=== PATIENT | female | born 1955 | race Hispanic/Latino ===

== ENCOUNTER 2020-02-29 18:10 | Emergency (ER) | payer SELFPAY ==
--- OUTSIDE RECORDS SUMMARY | 2020-02-29 18:13 | XMS REPORT | Continuity of Care Document ---
Author Author [facility] t Organization [facility] Address [address] [place] [address] Phone Unavailable Care Team Providers Care Airplane Refueler Name Role Phone Christina DAY, P Nihita PCP Shanti DAY, Dorisumathi Attphys [phone] Christina DAY, P Nihita Attphys Rosario DAY, T Robert Attphys Payers Payer Name Policy Type Policy Number Effective Date Expiration Date Marycarmen DURHAM [employer]xxx /10/[id number] [address] [place] [id number] xxxxxxxxxx 2019 00:00:0 0 2020 23:59:59 [facility] Problems Condition Name Condition Details Condition Category Status Onset Date Resolution Date Last Treatment Date Treating Clinician Comments Source Adult BMI > 30 Adult BMI > 30 Disease Active 2017-01-13 00:00:00 [facility] Overweight (BMI 25.0-29.9) Overweight (BMI 25.0-29.9) Disease Active 2017-01-13 00:00:00 [facility] Essential hypertension Essential hypertension Disease Active 2016-12-02 00:00:00 [facility] Type 2 diabetes mellitus without complic ation, without long-term current use of insulin Type 2 diabetes mellitus without complic ation, without long-term current use of insulin Disease Active 2016-12-02 00:00:00 [facility] Other and unspecified hyperlipidemia Other and unspecified h yperlipidemia Disease Active 2016-12-02 00:00:00 [facility] Osteoarthritis of spine with radiculopathy, lumbar reg ion Osteoarthritis of spine with radiculopathy, lumbar region Disease Active 2016-12-02 00:00:0 0 [facility] Lipoma Lipoma Disease Active 2016-12-02 00:00:00 [facility] Allergies, Adverse Reactions, Alerts This patient has no known allergies or adverse reactions. Family History Family Member Diagnosis Comments Start Date Stop Date Source [facility] Natural mother Heart [facility] Natural mother Hypertension [facility] Natural mother Lipids [facility] Natural mother Stroke [facility] Social History Social Habit Start Date Stop Date Quantity Comments Source Sex Assigned At [facility] Exposure to SARS-CoV-2 (event) Not sure [facility] Alcohol intake 2019-11-22 00:00:00 2019-11-22 00:00:00 [facility] SDOH Food Worry 2018-09-22 00:00:00 2018-09-22 00:00:00 1 [facility] Food Scarcity 2018-09-22 00:00:00 2018-09-22 00:00:00 1 [facility] Smoking Status Start Date Stop Date Source Never smoker [facility] Medications Ordered Medication Name Filled Medication Name Start Date Stop Da te Current Medication? Ordering Clinician Indication Dosage Frequency Signature (SIG) Comments Components Source lisinopriL (PRINIVIL, ZESTRIL) 5 mg tablet 2020-02-27 00:00: 00 Yes Essential hypertension Take 1 tablet by mouth once daily [facility] pravastatin (PRAVACHOL) 40 mg tablet 2019-12-08 00:00:00 Yes Type 2 diabetes mellitus without complication, without long-term current use of insulin 40mg Take 1 tablet by mouth at bedtime nightly. [facility] furosemide (LASIX) 20 mg tablet 2019-12-08 00:00:00 Yes Type 2 diabetes mellitus without complication, without long-term current use of insulin TAKE 1/2 (ONE-HALF) TABLET BY MOUTH ONCE DAILY. [facility] metFORMIN (GLUCOPHAGE) 500 mg tablet 2019-12-08 00:00:00 Yes Type 2 diabetes mellitus without complication, without long-term current use of insulin TAKE 1 TABLET BY MOUTH ONCE DAILY WITH BREAKFAS T. [facility] levothyroxine (SYNTHROID) 25 mcg tablet 2019-12-08 00:00:00 Yes Hypothyroidism, unspecified type 25ug QD Take 1 tablet by mouth da nereida. [facility] blood glucose (PRECISION XTRA TEST STRIPS) test strips 2019-12-08 00:00:00 Yes Type 2 diabetes mellitus wit hout complication, without long-term current use of insulin Q.5D 2 times daily Dispense True test / true Res ult. [facility] lancets 28 gauge 2019-12-08 00:00:00 Yes Type 2 diabetes mellitus without complication, without long-term current use of insulin Q.5D use 2 times daily [facility] famotidine (PEPCID) 20 mg tablet 2019-12-08 00:00:00 Yes Dysphagia, unspecified type 20mg Take 1 tablet by mouth daily as neede d for Heartburn. [facility] lisinopriL (PRINIVIL, ZESTRIL) 5 mg tablet 12-07 00:00:00 2020-02-27 00:00:00 No Essential hypertension 5mg QD Take 1 tablet by mouth daily. [facility] lisinopriL (PRINIVIL, ZESTRIL) 5 mg tablet 11-22 00:00:00 2019-12-08 00:00:00 No Essential hypertension 5mg QD Take 1 tablet by mouth daily. [facility] pravastatin (PRAVACHOL) 40 mg tablet 2019-11-22 00:00: 00 2019-12-08 00:00:00 No Type 2 diabetes mellitus wit hout complication, without long-term current use of insulin 40mg Take 1 tablet by mouth at bedtime nightly. [facility] furosemide (LASIX) 20 mg tablet 2019-11-22 00:00:00 00:00:00 No Type 2 diabetes mellitus without complication, without long-term current use of insulin TAKE 1/2 (ONE-HALF) TABLET BY MOUTH ONCE DAILY. [facility] metFORMIN (GLUCOPHAGE) 500 mg tablet 2019-11-22 00:00: 00 2019-12-08 00:00:00 No Type 2 diabetes mellitus wit hout complication, without long-term current use of insulin TAKE 1 TABLET BY MOUTH ONCE DAILY WITH DENNISE REYNAGA. [facility] sulfamethoxazole-trimethoprim (BACTRIM DS) 800-160 mg per ta blet 2019-11-22 00:00:00 2019-11-27 23:59:00 No Dysuria 1{tbl} Q.5D Take 1 tablet by mouth 2 times daily for 5 days. [facility] metFORMIN (GLUCOPHAGE) 500 mg tablet 2019-10-12 00:00: 00 2019-11-22 00:00:00 No Type 2 diabetes mellitus wit hout complication, without long-term current use of insulin TAKE 1 TABLET BY MOUTH ONCE DAILY WITH DENNISE REYNAGA. [facility] clarithromycin (BIAXIN) 500 mg tablet 2019-09-25 00:00 :00 2019-12-08 00:00:00 No Helicobacter pylori infection 500mg Q.5D Take 1 tablet by mouth 2 times daily. [facility] amoxicillin (AMOXIL) 500 mg capsule 2019-09-25 00:00:0 0 2019-10-09 23:59:00 No Helicobacter pylori infection 1000mg Q.5D Take 2 capsules by mouth 2 times daily for 14 days. [facility] omeprazole (PRILOSEC) 20 mg delayed release capsule 2019-09-25 00:00:00 2019-10-09 23:59:00 No Helicobacter pylori infection 20mg Q.5D Take 1 capsule by mouth 2 times daily (after meals) for 14 days. [facility] Bismuth Subcit D-Bccbfprkb-SKT (PYLERA) 140-125-125 mg delayed release capsule 2019-09-25 00:00:00 2019-09-25 00:00:00 No Helicob acter pylori infection 3{capsule} Q.25D Take 3 capsules by mouth 4 t imes daily (after meals and nightly) for 10 days. [facility] omeprazole (PRILOSEC) 20 mg delayed release capsule 2019-09-25 00:00:00 2019-09-25 00:00:00 No Helicobacter pylori infection 20mg Q.5D Take 1 capsule by mouth 2 times daily (after meals) for 10 days. [facility] ergocalciferol (VITAMIN D2) 1,250 mcg (50,000 unit) capsule 2019-09-03 00:00:00 Yes Vitamin D deficiency 57209X Take 1 cap aiyana by mouth weekly. [facility] ergocalciferol (VITAMIN D2) 50,000 unit capsule 2019-08-30 00:00:00 2019-09-03 00:00:00 No Vitamin D deficiency 11871K Take 1 capsule by mouth weekly. [facility] famotidine (PEPCID) 20 mg tablet 2019-08-29 00:00:00 2019-11 00:00:00 No Dysphagia, unspecified type 20mg Take 1 table t by mouth daily as needed for Heartburn. [facility] tropicamide (MYDRIACYL) 0.5 % ophthalmic solution 2019-08-29 00:00:00 2019-08-29 23:59:00 No Type 2 diabetes kayley itus without complication, without long-term current use of insulin 1[drp] Instill 1 Drop in each eye once as needed for up to 1 dose (for poor retina scan image). [facility] lisinopril (PRINIVIL, ZESTRIL) 5 mg tablet 08-15 00:00:00 2019-11-22 00:00:00 No Essential hypertension TAKE 1 TABLET BY MOUTH ONCE DAILY [facility] levothyroxine (SYNTHROID) 25 mcg tablet 00:00:00 2019-12-08 00:00:00 No Hypothyroidism, unspecified type TAKE 1 TABLET BY MOUTH ONCE DAILY [facility] furosemide (LASIX) 20 mg tablet 2019-06-15 00:00:00 00:00:00 No Type 2 diabetes mellitus without complication, without long-term current use of insulin TAKE 1/2 (ONE-HALF) TABLET BY MOUTH ONCE DAILY [facility] ammonium lactate (LAC-HYDRIN) 12 % lotion 2019-03-23 00:00:0 0 Yes Dry skin Apply to affected area as needed for dry skin D ryness on feet. [facility] blood glucose (PRECISION XTRA TEST STRIPS) test strips 2018-12-08 00:00:00 2019-12-08 00:00:00 No Type 2 diabetes kayley itus without complication, without long-term current use of insulin Q.5D 2 times daily Dispense True test / true Result. [facility] lancets 28 gauge 2018-12-08 00:00:00 2019-12-08 00:00:00 No Type 2 diabetes mellitus without complication, without long-term current use of insulin Q.5D use 2 times daily [facility] pravastatin (PRAVACHOL) 40 mg tablet 2018-12-08 00:00: 00 2019-11-22 00:00:00 No Type 2 diabetes mellitus wit hout complication, without long-term current use of insulin 40mg Take 1 tablet by mouth at bedtime nightly. [facility] metFORMIN (GLUCOPHAGE) 500 mg tablet 2018-12-08 00:00: 00 2019-10-12 00:00:00 No Type 2 diabetes mellitus wit hout complication, without long-term current use of insulin TAKE ONE TABLET BY MOUTH ONCE DAILY (WITH B REAKFAST). [facility] lisinopril (PRINIVIL, ZESTRIL) 5 mg tablet 12-08 00:00:00 2019-08-29 00:00:00 No Essential hypertension 5mg QD Take 1 tablet by mouth daily. [facility] levothyroxine (SYNTHROID) 25 mcg tablet 00:00:00 2019-06-15 00:00:00 No Hypothyroidism, unspecified type 25ug QD Take 1 tablet by mouth daily. [facility] furosemide (LASIX) 20 mg tablet 2018-12-08 00:00:00 00:00:00 No Type 2 diabetes mellitus without complication, without long-term current use of insulin 10mg QD Take 0.5 tablets by mouth daily. [facility] nystatin (MYCOSTATIN) topical cream 2018-11-25 00:00:00 Yes Tinea pedis, right Q.5D Apply to affected area 2 times daily In taiwanese . [facility] ammonium lactate (LAC-HYDRIN) 12 % lotion 10-03 00:00:00 2019-03-23 00:00:00 No Dry skin Apply to affec jimena area as needed for dry skin Dryness on feet. [facility] blood glucose meter 2017-02-03 00:00:00 Yes Type 2 diabetes mellitus without complication, without long-term current use of insulin Use as directed.Dispense True test / true Result. [facility] Immunizations Ordered Immunization Name Filled Immunization Name Date Status Comments Source Influenza Vaccine 2019-06-27 00:00:00 Completed [facility] Influenza <Unspecified> 2018-06-26 00:00:00 Completed [facility] PCV 13 (Pnuemococcal Conjugated 13 Valent) 2017-06-27 00:0 0:00 Completed [facility] PPV 23 Pneumococcal Polysaccaride 2016-12-02 00:00:00 Comp leted [facility] Influenza, Seasonal, Injectable 2014-07-10 00:00:00 Comple jimena [facility] Influenza, Seasonal, Injectable 2013-07-06 00:00:00 Comple [facility] Td <Unspecified> 2012-10-10 00:00:00 Completed [facility] Tdap (Tetanus Toxoid, Reduced Diphtheria Toxoid And Acellular Pertussis, Absorbed) 2012-09-29 00:00:00 Completed [facility] Influenza, Seasonal, Injectable 2012-06-28 00:00:00 Comple jimena [facility] PPV 23 (Pneumococcal Polysaccharide 23 Valent) 2011-09 00:00:00 Completed [facility] Influenza Vaccine, Seasonal, Injectable 2011-07-27 00:00:0 0 Completed [facility] Tdap (Tetanus Toxoid, Reduced Diphtheria Toxoid And Acellular Pertussis, Absorbed) 2002-09-27 00:00:00 Completed [facility] Vital Signs Vital Name Observation Time Observation Value Comments Source Systolic blood pressure 2019-12-08 07:46:00 119 mm[Hg] [facility] Diastolic blood pressure 2019-12-08 07:46:00 67 mm[Hg] [facility] Heart rate 2019-12-08 07:46:00 67 /min [facility] Body temperature 2019-12-08 07:46:00 36.83 Celi [facility] Respiratory rate 2019-12-08 07:46:00 18 /min [facility] Body height 2019-12-08 07:46:00 154.9 cm [facility] Body weight 2019-12-08 07:46:00 99.791 kg [facility] BMI 2019-12-08 07:46:00 41.57 kg/m2 [facility] Procedures Procedure Date / Time Performed Performing Clinician Sourc e H. PYLORI STOOL AG 2019-11-23 16:27:00 Robert Ponce [facility] URINALYSIS 2019-11-22 21:36:00 Robert Ponce [facility] URINALYSIS 2019-11-22 21:36:00 Robert Ponce [facility] URINE CULTURE 2019-11-22 21:36:00 Robert nicholson [facility] DIABETIC FOOT EXAM 2019-11-22 21:13:57 Robert Ponce [facility] OPHTHALMOLOGY RETINAL SCAN 2019-09-25 14:31:08 Antonio Vasquez [facility] H. PYLORI STOOL AG 2019-09-18 20:28:00 Antonio Vasquez [facility] alth XRAY UPPER GI W AIR CONTRAST 2019-09-14 15:13:08 Antonio Vasquez [facility] FECAL OCCULT BLOOD 2019-09-07 19:33:00 Antonio Vasquez HEMOGLOBIN A1C 2019-08-29 16:05:00 Antonio Vasquez h COMPREHENSIVE METABOLIC PANEL 2019-08-29 16:05:00 Antonio Vasquez [facility] CBC (WITHOUT DIFFERENTIAL) 2019-08-29 16:05:00 Antonio Vasquez [facility] VIT D, 25-HYDROXY 2019-08-29 16:05:00 Antonio Vasquez [facility] THYROID STIMULATING HORMONE (TSH) 2019-07-27 13:07:00 Ahmet Vasquez [facility] FREE T4 2019-07-27 13:07:00 Antonio Vasquez h LIPID PROFILE 2019-07-27 13:07:00 Antonio Vasquez h HEMOGLOBIN A1C 2019-03-02 14:32:00 Antonio Vasquez h COMPREHENSIVE METABOLIC PANEL 2019-03-02 14:32:00 Antonio Vasquez [facility] Plan of Care Planned Activity Planned Date Details Comments Source Future Scheduled Test 2020-11-22 00:00:00 DM Foot Exam (Year ly) [code = DM Foot Exam (Yearly)] [facility] Scheduled Test 2020-09-25 00:00:00 DM Retinal Exam (Y early) [code = DM Retinal Exam (Yearly)] [facility] Scheduled Test 2020-09-07 00:00:00 Colorectal Cancer Scrn Annual (FIT/FOBT) Age 50 to 75 [code = Colorectal Cancer Scrn Annual (FIT/FOBT) Age 50 to 75] [facility] Scheduled Test 2020-08-29 00:00:00 DM HGBA1C (Yearly) [code = DM HGBA1C (Yearly)] [facility] Scheduled Test 2020-06-27 00:00:00 IMM Influenza Seas onal Jun to November (>/= 19 yrs) [code = IMM Influenza Seasonal Jun to November (>/= [address] yrs)] [facility] Scheduled Test 2020-02-03 00:00:00 Breast Cancer Scrn (Yearly) [code = Breast Cancer Scrn (Yearly)] [facility] Encounters Start Date/Time End Date/Time Encounter Type Admission Type [facility] Care Department Encounter ID Source 2019-09-25 00:00:00 2019-09-25 00:00:00 Outpatient [facility] [id number] [facility] 2019-09-14 00:00:00 2019-09-14 00:00:00 Outpatient [facility] [id number] [facility] 2019-09-07 13:32:34 2019-09-07 13:32:34 Outpatient [facility] [id number] [facility] 2019-08-29 09:58:06 2019-08-29 09:58:06 Outpatient [facility] [id number] [facility] 2019-08-29 07:56:09 2019-08-29 07:56:09 Outpatient [facility] [id number] [facility] 2019-08-29 00:00:00 2019-08-29 00:00:00 Outpatient [facility] [id number] [facility] 2019-07-27 08:07:01 2019-07-27 08:07:01 Outpatient [facility] [id number] [facility] 2019-07-27 00:00:00 2019-07-27 00:00:00 Outpatient [facility] [id number] [facility] 2019-04-20 14:21:36 2019-04-20 14:21:36 Outpatient [facility] [id number] [facility] 2019-03-23 08:09:16 2019-03-23 08:09:16 Outpatient [facility] [id number] [facility] 2019-03-03 00:00:00 2019-03-03 00:00:00 Outpatient [facility] [id number] [facility] 2019-03-02 09:32:19 2019-03-02 09:32:19 Outpatient [facility] [id number] [facility] 2019-03-02 00:00:00 2019-03-02 00:00:00 Outpatient [facility] [id number] [facility] 2019-02-09 00:00:00 2019-02-09 00:00:00 Outpatient [facility] [id number] [facility] 2019-02-02 07:43:57 2019-02-02 07:43:57 Outpatient [facility] [id number] [facility] 2018-12-13 00:00:00 2018-12-13 00:00:00 Outpatient [facility] [id number] [facility] 2018-12-08 13:36:05 2018-12-08 13:36:05 Outpatient [facility] [id number] [facility] 2018-12-05 00:00:00 2018-12-05 00:00:00 Outpatient [facility] [id number] [facility] 2018-11-25 07:55:13 2018-11-25 07:55:13 Outpatient [facility] [id number] [facility] 2018-11-17 00:00:00 2018-11-17 00:00:00 Outpatient [facility] [id number] [facility] 2018-10-06 09:03:53 2018-10-06 09:03:53 Outpatient [facility] [id number] [facility] 2018-10-03 11:01:39 2018-10-03 11:01:39 Outpatient [facility] [id number] [facility] 2018-09-26 00:00:00 2018-09-26 00:00:00 Outpatient [facility] [id number] [facility] 2018-09-22 11:11:35 2018-09-22 11:11:35 Outpatient [facility] [id number] [facility] 2018-09-22 10:48:03 2018-09-22 10:48:03 Outpatient [facility] [id number] [facility] 2018-09-22 08:35:04 2018-09-22 08:35:04 Outpatient [facility] [id number] [facility] 2018-09-13 12:22:05 2018-09-13 12:22:05 Outpatient [facility] [id number] [facility] 2018-09-08 09:25:59 2018-09-08 09:25:59 Outpatient [facility] [id number] [facility] 2018-09-08 08:33:25 2018-09-08 08:33:25 Outpatient [facility] [id number] [facility] 2017-07-05 00:00:00 2017-07-05 00:00:00 Outpatient [facility] [id number] [facility] 2017-06-18 19:59:21 2017-06-18 19:59:21 Outpatient [facility] [id number] [facility] 2017-06-18 11:41:13 2017-06-18 11:41:13 Outpatient [facility] [id number] [facility] 2017-06-14 15:10:11 2017-06-14 15:10:11 Outpatient [facility] [id number] [facility] 2017-02-10 08:22:00 2017-02-10 08:22:00 Outpatient [facility] [id number] [facility] Results Test Description Test Time Test Comments Results Result Comments Source H. Pylori Stool Ag 2019-11-28 09:10:00 Test Item H. pylori Stool Ag, EIA (test code = 55915-7) Negative Negative RONAK (test code = RONAK) Performed at: [address] [id number] Director: Kieran Gunderson MD, Phone: [phone] [id number] 00:32:00* Test Item Value Reference Range Interpretation Comments Color (test code = 40370502) Yellow Colorless, Straw, Yellow Clarity (test code = 05339759) Clear Clear Spec Jacob, Ur (test code = 97963825) 1.020 1.001-1.035 pH, Ur (test code = 82633883) 5.0 5.0-8.0 Protein, Ur (test code = 05946238) Negative Negative mg/dL Glucose, Ur (test code = 03582857) Negative Negative mg/dL Ketone, Ur (test code = 33284729) Negative Negative mg/dL Bilirubin, Ur (test code = 90226808) Negative Negative mg/dL Nitrite, Ur (test code = 53515769) Negative Negative Leukocyte (test code = 51741570) Negative Negative mg/dL Blood, Ur (test code = 32555472) 2+ Negative mg/dL A RBC (test code = 20598677) 2 0- 4 /HPF WBC (test code = 41144128) <1 0- 5 /HPF Epithelial Cell (test code = 81558746) 1 <=1 /HPF Mucous (test code = 89999996) Present None seen /HPF A Amorphous Sed (test code = 62776798) Present None seen /HPF A Urobilinogen, Ur (test code = 85014844) <1.0 <1.0 EU/dL Lab Interpretation (test code = 68849-8) [facility] [id number] 15:13:57Robert Ponce MD 11/27/2019 1:31 PMDiabetic Foot Exam was performed at 11/22/2019 3:22 PM. Right foot sensation is normal, right foot pulses are normal, right foot appearance is normal. Left foot sensation is normal, left foot pulses are normal, left foot appearance is normal. [facility] UPPER GI W AIR [id number] 16:15:13IMPRESSION: 1. Small hiatal hernia.2. Mild gastroesophageal reflux. Dictated By: Harsha Grissom MD, 09/14/2019 2:05 PM I have reviewed the study and agree with the findings in this report. Signed By: Raza Ravi MD, 09/14/2019 4:15 PM Interface, Rad/Mammog In - 09/14/2019 4:21 PM CSTEXAM: DOUBLE CONTRAST UPPER GI SERIES INDICATION: sometimes has difficulty swallowing COMPARISON: CT abdomen and pelvis 01/25/2017.TECHNIQUE: Effervescent granules and barium were swallowed by mouth andfluoroscopy was performed of the UGI tract and documented with spotfilms RADIATION DOSE: Fluoroscopy Time: 2.8 min Dose Area Product: 24.4 Gycm2 Cumulative Air Kerma: 177 mGyFINDINGS: CUSTOMER OPERATIONS ASSOCIATE: The bowel gas pattern is non-obstructive. ESOPHAGUS: Motility: Within normal limits. Mucosa: Unremarkable. Distensibility: Normal.GASTROESOPHAGEAL JUNCTION: Small hiatal hernia.GASTROESOPHAGEAL REFLUX: Mild gastroesophageal reflux with Valsalva.STOMACH: Normally distensible and demonstrates normal contours andmucosal pattern. DUODENUM: Bulb and sweep are normal. Duodenal-jejunal junction is in the normal expected position.IMPRESSIONIMPRESSION: 1. Small hiatal hernia.2. Mild gastroesophageal reflux.Dictated By: Harsha Grissom MD, 09/14/2019 2:05 PMI have reviewed the study and agree with the findings in this report.Signed By: Raza Ravi MD, 09/14/2019 4:15 PMHarris HealthFecal Occult [id number] 14:13:00* Test Item Value Reference Range Interpretation Comments Occult Blood (test code = 09885-7) Negative Negative Lab Interpretation (test code = 80366-1) Normal [facility], [id number] 10:58:00* Test Item Value Reference Range Interpretation Comments Vit D, 25-Hydroxy (test code = 06900729) 10.1 ng/mL 30-100 L Vitamin D Interpretation (test code = 68176836) Deficient Suffic ient A Sufficient: >30.0Insufficient: 20.0 - 29.9Deficient: <20.0 Lab Interpretation (test code = 09916-5) Abnormal [facility] MonroeHem[facility] [id number] 08:36:00* Test Item Value Reference Range Interpretation Comments Hemoglobin A1c (test code = 4548-4) 5.9 % 4.3-6.1 Estimated Average Glucose (test code = 34682257) 123 mg/dL 70-11 0 H Lab Interpretation (test code = 98742-3) [facility] [id number] 16:54:00* Test Item Value Reference Range Interpretation Comments Sodium (test code = 2951-2) 141 mmol/L 136-145 Potassium (test code = 2823-3) 4.4 mmol/L 3.5-5.1 Chloride (test code = 2075-0) 105 mmol/L 98-107 CO2 (test code = 32189614) 27 mmol/L 21-31 Glucose (test code = 64312990) 103 mg/dL 70-110 Calcium (test code = 75350457) 9.1 mg/dL 8.6-10.3 Urea Nitrogen (test code = 66765995) 20.0 mg/dL 7-25 Creatinine (test code = 55239103) 0.7 mg/dL 0.6-1.2 Alkaline Phosphatase (test code = 10646621) 66 U/L 34-104 ALT (test code = 04292803) 18 U/L 7-52 AST (test code = 17774419) 15 U/L 13-39 Total Protein (test code = 2885-2) 6.5 g/dL 6-8.3 GFR, Estimated (test code = 32867699) 85 >=90 mL/min/1.73 m2 L Albumin (test code = 50309-3) 3.8 g/dL 3.7-5.3 Anion Gap (test code = 19150881) 9 mmol/L 5-16 Lab Interpretation (test code = 39688-6) [facility]normal [facility] ([facility] differential)2019-08-29 15:52:00* Test Item Value Reference Range Interpretation Comments WBC (test code = 6690-2) 6.7 K/uL 4.5-11 RBC (test code = 789-8) 4.64 4.20- 5.40 M/uL Hemoglobin (test code = 718-7) 13.1 g/dL 12-16 Hematocrit (test code = 4544-3) 42.1 % 37-47 MCV (test code = 787-2) 90.7 fL 82-92 MCH (test code = 785-6) 28.2 pg 27-32 MCHC (test code = 786-4) 31.1 g/dL 32-36 L RDW (test code = 26532-1) 46.8 fL 36.4-46.3 H Platelet (test code = 777-3) 206 K/uL 150-400 Mean Platelet Volume (test code = 40413-7) 12.7 fL 9.4-12.4 H Percent NRBC (test code = 34799090) 0.0 % Lab Interpretation (test code = 26268-7) [id number] 14:51:00* Test Item Value Reference Range Interpretation Comments Cholesterol (test code = 2093-3) 167.0 mg/dL <=200.0 Triglyceride (test code = 58141831) 109 mg/dL <150 HDL (test code = 2085-9) 47.0 mg/dL See Reference Range Narrative . LDL (test code = 37638-7) 98 mg/dL <100 Op timal: < 100.0 mg/dLNear Optimal: 120-129 mg/dLBorderline: 130-159 mg/dLHigh: 160-189 mg/dLVery High: >=190 mg/dL Patient Fasting? (test code = 87771669) Yes [id number] 14:51:00* Test Item Value Reference Range Interpretation Comments Free T4 (test code = 32547724) 0.98 ng/dl 0.61-1.18 Lab Interpretation (test code = 39354-8) [facility]Thyroid Stimulating Hormone]2019-07-27 14:48:00* Test Item Value Reference Range Interpretation Comments TSH (test code = 26985868) 3.07 0.45- 5.33 uIU/mL If , please see the following reference ranges (not verified by lab): 1st Trimester: 0.05 -3.70 uIU/mL2nd Trimester: 0.31 -4.35 uIU/mL3rd Trimester: 0.41 - 5.18 uIU/mL Lab Interpretation (test code = 60675-3) [facility]
--- OUTSIDE RECORDS SUMMARY | 2020-02-29 18:13 | XMS REPORT | Clinical Summary ---
Author Author [facility] ict Organization [facility] ict Address Unknown Phone Unavailable Care Team Providers Care Manager Of Organizational Development Name Role Phone Antonio Vasquez MD PCP Allergies No Known Allergies Medications End Date Status Medication Sig Dispensed Refills Start Date Active blood glucose Use as 1 Kit 0 meterIndications: Type 2 directed.Disp 7 diabetes mellitus without ense True complication, without test / true long-term current use of Result. insulin Active nystatin (MYCOSTATIN) Apply to 30 g 5 topical creamIndications: affected area 9 Tinea pedis, right 2 times daily In greenlandic. Active ammonium lactate Apply to 222 mL 0 (LAC-HYDRIN) 12 % affected area 9 lotionIndications: Dry as needed for skin dry skin Dryness on feet. Active ergocalciferol (VITAMIN Take 1 12 capsule 0 D2) 1,250 mcg (50,000 capsule by 9 unit) capsuleIndications: mouth weekly. Vitamin D deficiency Active pravastatin (PRAVACHOL) Take 1 tablet 90 tablet 1 40 mg tabletIndications: by mouth at 0 Type 2 diabetes mellitus bedtime without complication, nightly. without long-term current use of insulin Active furosemide (LASIX) 20 mg TAKE /2 45 tablet 1 0 tabletIndications: Type 2 (ONE-HALF) 0 diabetes mellitus without TABLET BY complication, without MOUTH ONCE long-term current use of DAILY. insulin Active metFORMIN (GLUCOPHAGE) TAKE 1 TABLET 90 tablet 1 0 500 mg tabletIndications: BY MOUTH ONCE 0 Type 2 diabetes mellitus DAILY WITH without complication, BREAKFAST. without long-term current use of insulin Active levothyroxine (SYNTHROID) Take 1 tablet 90 tablet 1 25 mcg tabletIndications: by mouth 0 Hypothyroidism, daily. unspecified type Active blood glucose (PRECISION 2 times daily 100 Each XTRA TEST STRIPS) test Dispense True 0 stripsIndications: Type 2 test / true diabetes mellitus without Result. complication, without long-term current use of insulin Active lancets 28 use 2 times 100 Each gaugeIndications: Type 2 daily 0 diabetes mellitus without complication, without long-term current use of insulin Active famotidine (PEPCID) 20 mg Take 1 tablet 90 tablet 0 tabletIndications: by mouth 0 Dysphagia, unspecified daily as type needed for Heartburn. Active lisinopriL (PRINIVIL, Take 1 tablet 90 tablet 0 ZESTRIL) 5 mg by mouth once 0 tabletIndications: daily Essential hypertension 03/23/2019 Discontinued (Reorder) ammonium lactate Apply to 222 mL 0 (LAC-HYDRIN) 12 % affected area 9 lotionIndications: Dry as needed for skin dry skin Dryness on feet. 06/15/2019 Discontinued (Reorder) levothyroxine (SYNTHROID) Take 1 tablet 90 tablet 1 25 mcg tabletIndications: by mouth 9 Hypothyroidism, daily. unspecified type 08/29/2019 Discontinued (Therapy comple jimena) lisinopril (PRINIVIL, Take 1 tablet 90 tablet 1 ZESTRIL) 5 mg by mouth 9 tabletIndications: daily. Essential hypertension 10/12/2019 Discontinued metFORMIN (GLUCOPHAGE) TAKE ONE 90 tablet 1 500 mg tabletIndications: TABLET BY 9 Type 2 diabetes mellitus MOUTH ONCE without complication, DAILY (WITH without long-term current BREAKFAST). use of insulin 11/22/2019 Discontinued (Reorder) pravastatin (PRAVACHOL) Take 1 tablet 90 tablet 1 40 mg tabletIndications: by mouth at 9 Type 2 diabetes mellitus bedtime without complication, nightly. without long-term current use of insulin 06/15/2019 Discontinued (Reorder) furosemide (LASIX) 20 mg Take 0.5 45 tablet 1 0 tabletIndications: Type 2 tablets by 9 diabetes mellitus without mouth daily. complication, without long-term current use of insulin 12/08/2019 Discontinued (Reorder) blood glucose (PRECISION 2 times daily 100 Each 11 XTRA TEST STRIPS) test Dispense True 9 stripsIndications: Type 2 test / true diabetes mellitus without Result. complication, without long-term current use of insulin 12/08/2019 Discontinued (Reorder) lancets 28 use 2 times 100 Each 11 gaugeIndications: Type 2 daily 9 diabetes mellitus without complication, without long-term current use of insulin 12/08/2019 Discontinued (Reorder) levothyroxine (SYNTHROID) TAKE 1 TABLET 90 tablet 1 25 mcg tabletIndications: BY MOUTH ONCE 9 Hypothyroidism, DAILY unspecified type 11/22/2019 Discontinued (Reorder) furosemide (LASIX) 20 mg TAKE 1/2 45 tablet 1 0 tabletIndications: Type 2 (ONE-HALF) 9 diabetes mellitus without TABLET BY complication, without MOUTH ONCE long-term current use of DAILY insulin 11/22/2019 Discontinued (Reorder) lisinopril (PRINIVIL, TAKE 1 TABLET 90 tablet 1 ZESTRIL) 5 mg BY MOUTH ONCE 9 tabletIndications: DAILY Essential hypertension 08/29/2019 tropicamide (MYDRIACYL) Instill 1 15 mL 0 0.5 % ophthalmic Drop in each 9 solutionIndications: Type eye once as 2 diabetes mellitus needed for up without complication, to 1 dose without long-term current (for poor use of insulin retina scan image). 12/08/2019 Discontinued (Therapy comple jimena) famotidine (PEPCID) 20 mg Take 1 tablet 180 tablet 0 tabletIndications: by mouth 9 Dysphagia, unspecified daily as type needed for Heartburn. 09/03/2019 Discontinued (Reorder) ergocalciferol (VITAMIN Take 1 12 capsule 0 D2) 50,000 unit capsule by 9 capsuleIndications: mouth weekly. Vitamin D deficiency 09/25/2019 Discontinued (Alternate ther apy) Bismuth Subcit Take 3 120 capsule 0 Y-Zoqucyxol-VCE (PYLERA) capsules by 9 140-125-125 mg delayed mouth 4 times release daily (after capsuleIndications: meals and Helicobacter pylori nightly) for infection 10 days. 09/25/2019 Discontinued (Reorder) omeprazole (PRILOSEC) 20 Take 1 20 capsule 0 1 mg delayed release capsule by 9 capsuleIndications: mouth 2 times Helicobacter pylori daily (after infection meals) for 10 days. 12/08/2019 Discontinued (Therapy comple jimena) clarithromycin (BIAXIN) Take 1 tablet 28 tablet 0 500 mg tabletIndications: by mouth 2 9 Helicobacter pylori times daily. infection 10/09/2019 amoxicillin (AMOXIL) 500 Take 2 56 capsule 0 1 mg capsuleIndications: capsules by 9 Helicobacter pylori mouth 2 times infection daily for 14 days. 10/09/2019 omeprazole (PRILOSEC) 20 Take 1 28 capsule 0 1 mg delayed release capsule by 9 capsuleIndications: mouth 2 times Helicobacter pylori daily (after infection meals) for 14 days. 11/22/2019 Discontinued (Reorder) metFORMIN (GLUCOPHAGE) TAKE 1 TABLET 90 tablet 0 0 500 mg tabletIndications: BY MOUTH ONCE 0 Type 2 diabetes mellitus DAILY WITH without complication, BREAKFAST. without long-term current use of insulin 11/27/2019 sulfamethoxazole-trimetho Take 1 tablet 10 tablet 0 prim (BACTRIM DS) 800-160 by mouth 2 0 mg per tabletIndications: times daily Lower abdominal pain, for 5 days. Dysuria 12/08/2019 Discontinued (Reorder) lisinopriL (PRINIVIL, Take 1 tablet 90 tablet 1 ZESTRIL) 5 mg by mouth 0 tabletIndications: daily. Essential hypertension 12/08/2019 Discontinued (Reorder) pravastatin (PRAVACHOL) Take 1 tablet 90 tablet 1 40 mg tabletIndications: by mouth at 0 Type 2 diabetes mellitus bedtime without complication, nightly. without long-term current use of insulin 12/08/2019 Discontinued (Reorder) furosemide (LASIX) 20 mg TAKE 09/28 45 tablet 1 0 tabletIndications: Type 2 (ONE-HALF) 0 diabetes mellitus without TABLET BY complication, without MOUTH ONCE long-term current use of DAILY. insulin 12/08/2019 Discontinued (Reorder) metFORMIN (GLUCOPHAGE) TAKE 1 TABLET 90 tablet 0 0 500 mg tabletIndications: BY MOUTH ONCE 0 Type 2 diabetes mellitus DAILY WITH without complication, BREAKFAST. without long-term current use of insulin 02/27/2020 Discontinued lisinopriL (PRINIVIL, Take 1 tablet 90 tablet 1 ZESTRIL) 5 mg by mouth 0 tabletIndications: daily. Essential hypertension Active Problems Problem Noted Date Adult BMI > 30 01/13/2017 Overweight (BMI 25.0-29.9) 01/13/2017 Essential hypertension 12/02/2016 Type 2 diabetes mellitus without complication, withou t long-term current 12/02/2016 use of insulin Other and unspecified hyperlipidemia 12/02/2016 Osteoarthritis of spine with radiculopathy, lumbar re gion 12/02/2016 Lipoma 12/02/2016 Encounters Care Team Description Date Type Specialty Alvarez Moser MD Essential hypertension 02/26/2020 Refill Family Practice Antonio Vasquez MD Type 2 diabetes mellitus without complic ation, without long- term current use of insulin (Primary Dx); Follow up; Essential hypertension; Dysphagia, unspecified type; Hypothyroidism, unspecified type 12/08/2019 Office Visit Family Practice Robert Ponce MD Lower abdominal pain (Primary Dx); History of Helicobacter pylori infection; Dysuria; Type 2 diabetes mellitus without complication, without long-term current use of insulin; Essential hypertension 11/22/2019 Office Visit Family Practice Antonio Vasquez MD Type 2 diabetes mellitus without complic ation, without long- term current use of insulin 10/11/2019 Refill [facility] 09/14/2019 Ancillary Radiology Procedure Antonio Vasquez MD Gastroesophageal reflux disease, esophag itis presence not specified (Primary Dx) 09/14/2019 Orders Only Family Practice Antonio Vasquez MD Vitamin D deficiency 09/03/2019 Orders Only Family Practice Antonio Vasquez MD Type 2 diabetes mellitus without complic ation, without long- term current use of insulin (Primary Dx); Follow up; Dysphagia, unspecified type 08/29/2019 Office Visit Family Practice Antonio Vasquez MD Essential hypertension 08/14/2019 Refill Family Practice Antonio Vasquez MD Hypothyroidism, unspecified type; Type 2 diabetes mellitus without complication, without long-term current use of insulin 07/27/2019 Lab Appointment Lab Antonio Vasquez MD Hypothyroidism, unspecified type; Type 2 diabetes mellitus without complication, without long-term current use of insulin 06/15/2019 Refill Family Practice Alvarez Moser MD Cracked skin on feet (Primary Dx); Asymptomatic varicose veins of both lower extremities 04/20/2019 Office Visit Family Practice Antonio Vasquez MD Type 2 diabetes mellitus without complic ation, without long- term current use of insulin (Primary Dx); Dietary counseling for Above / Below Normal BMI; Exercise counseling for Above Normal BMI Only!; Hypothyroidism, unspecified type; Dry skin 03/23/2019 Office Visit Family Practice Antonio Vasquez MD Type 2 diabetes mellitus without complic ation, without long- term current use of insulin 03/02/2019 Lab Appointment Lab after 02/28/2019 Immunizations Name Administration Dates Next Due Influenza <Unspecified> 06/26/2018 Influenza Vaccine 06/27/2019 Influenza Vaccine, 07/27/2011 Seasonal, Injectable Influenza, Seasonal, 07/10/2014, 07/06/2013, 10/2011 Injectable Influenza, 09/08/2018 (Deferred: Norberto trivedi already had this Vaccine<FLUCELVAX>(Multi- immunization - Jun 2018 ou [facility] of [facility]) Dose) PCV 13 (Pnuemococcal 06/27/2017 Conjugated 13 Valent) PPV 23 (Pneumococcal 09/29/2011 Polysaccharide 23 Valent) PPV 23 Pneumococcal 12/02/2016 Polysaccaride Td <Unspecified> 10/10/2012 Tdap (Tetanus Toxoid, 09/08/2018 (Deferred: Norberto farooq already had this Reduced Diphtheria Toxoid immunization - per pt rece ived 5 yrs ago outside [facility] of [facility]), 09/29/19 13, 09/27/2002 Absorbed) Zoster Vaccine (Shingrix) 12/08/2018 (Deferred: Vacc ine Unavailable) Family History Medical History Relation Name Comments Diabetes Mother Heart Mother Respitory Arrest Hypertension Mother Lipids Mother Stroke Mother Relation Name Status Comments Mother Social History Date Tobacco Use Types Packs/Day Years Used Never Smoker Smokeless Tobacco: Never Used Tobacco Cessation: Counseling Given: No Drinks/Week oz/Week Comments Alcohol Use No Food Insecurity Answer Date Recorded Within the past 12 months, you worried that your Never ivette e 09/22/2018 food would run out before you got money to buy more. Within the past 12 months, the food you bought Never true 09/22/2018 just didn't last and you didn't have mo cheryle to get more. Sex Assigned at Date Recorded Not on file Industry Job Start Date Occupation Not on file Not on file Not on file Travel End Travel History Travel Start No recent travel history available. Date Recorded COVID-19 Exposure Response 02/29/2020 10:31 AM CDT In the last month, have you been in contact with No / Unsure someone who was confirmed or suspected to have Coronavirus / COVID-19? Last Filed Vital Signs Reading Time Taken Comments Vital Sign 119/67 12/08/2019 7:46 AM CDT Blood Pressure 67 12/08/2019 7:46 AM CDT Pulse 36.8 C (98.3 F) 12/08/2019 7:46 AM CDT Temperature 18 12/08/2019 7:46 AM CDT Respiratory Rate - - Oxygen Saturation - - Inhaled Oxygen Concentration 99.8 kg (220 lb) 12/08/2019 7:46 AM CDT Weight 154.9 cm (5' 1") 12/08/2019 7:46 AM CDT Height 41.57 12/08/2019 7:46 AM CDT Body Mass Index Plan of Treatment Care Team Description Date Type Specialty Antonio Vasquez MD [address] [place] [address] [phone] Follow up /tested negative for for covid -19 on 02/23/2020 04/05/2020 Office Visit Family Practice Health Maintenance Due Date Last Done Comments Breast Cancer Scrn 02/03/2020 02/02/2019, 017 (Yearly) IMM Influenza Seasonal 06/27/2020 06/26/2018, Oct to November (>/= 19 yrs) DM HGBA1C (Yearly) 08/29/2020 08/29/2019, 019, 09/08/2018, Additional history exists Colorectal Cancer Scrn 09/07/2020 09/07/2019, , 12/07/2016 Annual (FIT/FOBT) Age 50 to 75 DM Retinal Exam (Yearly) 09/25/2020 09/25/2019, 1 11/23/2017, 02/11/2017 DM Foot Exam (Yearly) 11/22/2020 11/22/2019, 03/2019, 02/03/2017 Procedures Comments Procedure Name Priority Date/Time Associated Diag nosis H. PYLORI STOOL AG Routine 11/23/2019 History of Helicobacter 10:27 AM PODODERMATOLOGIST pylori infection URINE CULTURE Routine 11/22/2019 Lower abdominal pain 3:36 PM PODODERMATOLOGIST URINALYSIS Routine 11/22/2019 Lower abdominal pain 3:36 PM PODODERMATOLOGIST URINALYSIS Routine 11/22/2019 Lower abdominal pain 3:36 PM PODODERMATOLOGIST DIABETIC FOOT EXAM Routine 11/22/2019 Type 2 diab etes mellitus 3:13 PM PODODERMATOLOGIST without complication, without long-term current use of insulin OPHTHALMOLOGY RETINAL Routine 09/25/2019 Type 2 d iabetes mellitus SCAN 8:31 AM PODODERMATOLOGIST without complicatio n, without long-term current use of insulin H. PYLORI STOOL AG Routine 09/18/2019 Gastroesoph ageal reflux 2:28 PM PODODERMATOLOGIST disease, esophagitis presence not specified XRAY UPPER GI W AIR Routine 09/14/2019 Dysphagia, unspecified CONTRAST 9:13 AM PODODERMATOLOGIST type FECAL OCCULT BLOOD Routine 09/07/2019 Follow up 1:33 PM PODODERMATOLOGIST VIT D, 25-HYDROXY Routine 08/29/2019 Follow up 10:05 AM PODODERMATOLOGIST CBC (WITHOUT Routine 08/29/2019 Type 2 diabetes mellitus DIFFERENTIAL) 10:05 AM PODODERMATOLOGIST without complicatio n, without long-term current use of insulin COMPREHENSIVE METABOLIC Routine 08/29/2019 Type 2 diabetes mellitus PANEL 10:05 AM PODODERMATOLOGIST without complicatio n, without long-term current use of insulin HEMOGLOBIN A1C Routine 08/29/2019 Type 2 diabetes mellitus 10:05 AM PODODERMATOLOGIST without complication, without long-term current use of insulin LIPID PROFILE Routine 07/27/2019 Type 2 diabetes mellitus 8:07 AM CDT without complication, without long-term current use of insulin FREE T4 Routine 07/27/2019 Hypothyroidism, 8:07 AM CDT unspecified type THYROID STIMULATING Routine 07/27/2019 Hypothyroi dism, HORMONE (TSH) 8:07 AM CDT unspecified type COMPREHENSIVE METABOLIC Routine 03/02/2019 Type 2 diabetes mellitus PANEL 9:32 AM CDT without complicatio n, without long-term current use of insulin HEMOGLOBIN A1C Routine 03/02/2019 Type 2 diabetes mellitus 9:32 AM CDT without complication, without long-term current use of insulin after 02/28/2019 Results * H. Pylori Stool Ag (11/23/2019 10:27 AM PODODERMATOLOGIST) Only the most recent of 2 results within the time period is included. H. pylori Stool Negative Negative [facility] Ag, EIA Specimen Stool - Feces Narrative Performed At Performed at: 01 - [facility] [address] [place] [address] Field Staff Manager: Kieran Gunderson MD, Phone : [phone] Performing Organization Address [facility] Ph one Number [facility] [address] [place] [address] * Urinalysis (11/22/2019 3:36 PM PODODERMATOLOGIST) Color Yellow Colorless, Straw, [facility] Yellow [facility] Clarity Clear Clear [facility] Spec [place], 1.020 1.001 - 1.035 [facility] pH, Ur 5.0 5.0 - 8.0 [facility] Protein, Ur Negative Negative mg/dL [facility] Glucose, Ur Negative Negative mg/dL [facility] Ketone, Ur Negative Negative mg/dL [facility] Bilirubin, Ur Negative Negative mg/dL [facility] Nitrite, Ur Negative Negative [facility] Leukocyte Negative Negative mg/dL [facility] Blood, Ur 2+ (A) Negative mg/dL [facility] RBC 2 0 - 4 /HPF [facility] WBC <1 0 - 5 /HPF [facility] Epithelial Cell 1 <=1 /HPF [facility] Mucous Present (A) None seen /HPF [facility] Amorphous Sed Present (A) None seen /HPF [facility] Urobilinogen, <1.0 <1.0 EU/dL [facility] Specimen Urine Performing Organization Address City[facility] Ph one Number [facility] [address] [place] [address] * Urine Culture (11/22/2019 3:36 PM PODODERMATOLOGIST) Urine Culture Urogenital anthony [facility] Specimen Urine - Voided, urine Performing Organization Address [facility] Ph one Number [facility] [address] [place] [address] * DIABETIC FOOT EXAM (11/22/2019 3:13 PM PODODERMATOLOGIST) Narrative Performed At Robert Ponce MD 11/27/2019 1:31 PM Diabetic Foot Exam was performed at 10/29 3:22 PM. Right foot sensation is normal, right foot pulses are normal, right foot appearance is normal. Left foot sensation is nor mal, left foot pulses are normal, left foot appearance is normal. * OPHTHALMOLOGY RETINAL SCAN (09/25/2019 8:31 AM PODODERMATOLOGIST) RETINAL NORMAL [facility] SCAN-FINAL RESULT Right Diabetic None [facility] Retinopathy Right Macular None [facility] Edema Right Other None [facility] Suspected Conditions Right Image Gradable Image IRIS Quality Left Diabetic None [facility] Retinopathy Left Macular None [facility] Edema Left Other None [facility] Suspected Conditions Left Image Gradable Image [facility] Quality Specimen Narrative Performed At Retinal Study Result for alayna STAPLES 64 y/o, F (: [birth year], ) presented to [facility] on 09-25-2019 for a retinal imaging study of the left and r ight eyes. Based on the findings of the study, the following is recommended for THERON STEPHEN Normal Scan: Please advise the patient to return for another scan in 1 year. Interpreting Provider's Comments: No comments provided Right eye findings: Normal Result. Ne gative for Diabetic Retinopathy. Left eye findings: Normal Result. Neg ative for Diabetic Retinopathy. This result was electronically signed b y Kavoussi, Vu, MD, , Taxonomy: [id number] on 09-25-2019 02:5 2:01 SDC time. NOTE: Any pathology noted on this vinicio betic retinal evaluation should be confirmed by an appropriate ophthalmic examination. Performing Organization Address City/State/Zipcode Ph one Number IRIS * XRAY UPPER GI W AIR CONTRAST (09/14/2019 9:13 AM PODODERMATOLOGIST) Specimen Impressions Performed At IMPRESSION: SMS 1. Small hiatal hernia. 2. Mild gastroesophageal reflux. Dictated By: Harsha Grissom MD, 09/14/20 2:05 PM I have reviewed the study and agree wit h the findings in this report. Signed By: Raza Ravi MD, 09/14/2019 4:15 PM Narrative Performed At EXAM: DOUBLE CONTRAST UPPER GI SERIES SMS INDICATION: sometimes has difficulty swallowing COMPARISON: CT abdomen and pelvis 01/25. TECHNIQUE: Effervescent granules and barium were swallowed by mouth and fluoroscopy was performed of the UGI tr act and documented with spot films RADIATION DOSE: Fluoroscopy Time: 2.8 min Dose Area Product: 24.4 Gycm2 Cumulative Air Kerma: 177 mGy FINDINGS: UNDERWRITING DIRECTOR: The bowel gas pattern is non-obstructiv e. ESOPHAGUS: Motility: Within normal limits . Mucosa: Unremarkable. Distensibility: Normal. GASTROESOPHAGEAL JUNCTION: Small hiat al hernia. GASTROESOPHAGEAL REFLUX: Mild gastroe sophageal reflux with Valsalva. STOMACH: Normally distensible and dem onstrates normal contours and mucosal pattern. DUODENUM: Bulb and sweep are normal. Duodenal-jejunal junction is in the nor mal expected position. Procedure Note Interface, Rad/Mammog In - 09/14/2019 4:21 PM PODODERMATOLOGIST EXAM: DOUBLE CONTRAST UPPER GI SERIES INDICATION: sometimes has difficulty swallowing COMPARISON: CT abdomen and pelvis 01/25/2017. TECHNIQUE: Effervescent granules and barium were swallowed by mouth and fluoroscopy was performed of the UGI tract and documented with spot films RADIATION DOSE: Fluoroscopy Time: 2.8 min Dose Area Product: 24.4 Gycm2 Cumulative Air Kerma: 177 mGy FINDINGS: UNDERWRITING DIRECTOR: The bowel gas pattern is non-obstructive. ESOPHAGUS: Motility: Within normal limits. Mucosa: Unremarkable. Distensibility: Normal. GASTROESOPHAGEAL JUNCTION: Small hiatal hernia. GASTROESOPHAGEAL REFLUX: Mild gastroesophageal reflux with Valsalva. STOMACH: Normally distensible and demonstrates normal contours and mucosal pattern. DUODENUM: Bulb and sweep are normal. Duodenal-jejunal junction is in the normal expected position. IMPRESSION IMPRESSION: 1. Small hiatal hernia. 2. Mild gastroesophageal reflux. Dictated By: Harsha Grissom MD, 09/14/2019 2:05 PM I have reviewed the study and agree with the findings in this report. Signed By: Raza Ravi MD, 09/14/2019 4:15 PM Performing Organization Address [facility] one Number SMS * Fecal Occult Blood (09/07/2019 1:33 PM PODODERMATOLOGIST) Pathologist [facility] Occult Blood Negative Negative [facility] Specimen Stool - Feces Performing Organization [facility] one Number [facility] * Vitamin D, 25-Hydroxycalciferol (08/29/2019 10:05 AM PODODERMATOLOGIST) Pathologist [facility] Vit D, 10.1 (L) 30.0 - 100.0 ng/mL [facility] 25-Hydroxy LABORATORY Vitamin D Deficient (A) Sufficient [facility] Interpretation Comment: LABORATORY Sufficient: >30.0 Insufficient: 20.0 - 29.9 Deficient: <20.0 Specimen Blood Performing Organization Address [facility] one Number [facility] [address] [place], [place] [phone] * Hemoglobin A1C (08/29/2019 10:05 AM PODODERMATOLOGIST) Only the most recent of 2 results within the time period is included. Pathologist [facility] Hemoglobin A1c 5.9 4.3 - 6.1 % [facility] Estimated 123 (H) 70 - 110 mg/dL [facility] Average Glucose LABORATORY Specimen Blood Performing Organization Address [facility] one Number [facility] [address] [place], [place] [id number] * Comprehensive Metabolic Panel (08/29/2019 10:05 AM PODODERMATOLOGIST) Only the most recent of 2 results within the time period is included. Pathologist [facility] Sodium 141 136 - 145 mmol/L [facility] Potassium 4.4 3.5 - 5.1 mmol/L [facility] Chloride 105 98 - 107 mmol/L [facility] CO2 27 21 - 31 mmol/L [facility] Glucose 103 70 - 110 mg/dL [facility] Calcium 9.1 8.6 - 10.3 mg/dL [facility] Urea Nitrogen 20.0 7.0 - 25.0 mg/dL [facility] Creatinine 0.7 0.6 - 1.2 mg/dL [facility] Alkaline 66 34 - 104 U/L [facility] Phosphatase LABORATORY ALT 18 7 - 52 U/L [facility] AST 15 13 - 39 U/L [facility] Bilirubin, 0.4 0.2 - 1.2 mg/dL [facility] Total LABORAT[facility] Total Protein 6.5 6.0 - 8.3 g/dL [facility] GFR, Estimated 85 (L) >=90 mL/min/1.73 m2 [facility] Albumin 3.8 3.7 - 5.3 g/dL [facility] LABORATORY Anion Gap 9 5 - 16 mmol/L [facility] Specimen Blood Performing Organization Address [facility] one Number [facility] [address] [place] [address] * CBC (without differential) (08/29/2019 10:05 AM PODODERMATOLOGIST) WBC 6.7 4.5 - 11.0 K/uL [facility] RBC 4.64 4.20 - 5.40 M/uL [facility] Hemoglobin 13.1 12.0 - 16.0 g/dL [facility] Hematocrit 42.1 37.0 - 47.0 % [facility] MCV 90.7 82.0 - 92.0 fL [facility] MCH 28.2 27.0 - 32.0 pg [facility] MCHC 31.1 (L) 32.0 - 36.0 g/dL [facility] RDW 46.8 (H) 36.4 - 46.3 fL [facility] Platelet 206 150 - 400 K/uL [facility] Mean Platelet 12.7 (H) 9.4 - 12.4 fL [facility] Volume LABORATORY Percent NRBC 0.0 % [facility] Specimen Blood Performing Organization Address [facility] Ph one Number [facility] [address] [place] [address] * TSH [Thyroid Stimulating Hormone] (07/27/2019 8:07 AM CDT) TSH 3.07 0.45 - 5.33 uIU/mL [facility] Comment: LABORATORY If , please see the following reference ranges (not verified by lab): 1st Trimester: 0.05 -3.70 uIU/mL 2nd Trimester: 0.31 -4.35 uIU/mL 3rd Trimester: 0.41 - 5.18 uIU/mL Specimen Blood Performing Organization Address [facility] one Number [facility] [address] [place] [address] [phone] * Free T4 (07/27/2019 8:07 AM CDT) Free T4 0.98 0.61 - 1.18 ng/dl [facility] Specimen Blood Performing Organization Address [facility] one Number [facility] [address] [place] [address] [phone] * Lipid Profile (07/27/2019 8:07 AM CDT) Cholesterol 167.0 <=200.0 mg/dL [facility] Triglyceride 109 <150 mg/dL [facility] HDL 47.0 See Reference Range [facility] Narrative. mg/dL LABORATORY LDL 98 <100 mg/dL [facility] Comment: LABORATORY Optimal: < 100.0 mg/dL Near Optimal: 120-129 mg/dL Borderline: 130-159 mg/dL High: 160-189 mg/dL Very High: >=190 mg/dL Patient Yes [facility] Fasting? LABORATORY Specimen Blood Performing Organization Address [facility] one Number [facility] [address] [place] [address] after 02/28/2019 Insurance Type Payer Benefit Subscriber ID Effective Phone Address Plan / Dates Group [employer] xxxxxxxxxx 2019- [phone] [address] [place] [address]
== END 2020-02-29 20:35 | disposition left against medical advice (07) ==
LOC: ER 18:10
DX: R42 Dizziness and giddiness (principal)